=== PATIENT | female | born 1970 | race Caucasian/White ===

== ENCOUNTER → 2020-12-01 09:08 | Outpatient (CLI) | payer OTHER, MEDICAID, SELFPAY ==
--- NOTE | 2020-12-01 09:10 | DI.RAD.S_ITS ---
PROCEDURE: XR KNEE RT 3V INDICATIONS: right knee djd TECHNIQUE: 3 views of the knee were acquired. COMPARISON: Outside Facility, RG, XR KNEE 4V RIGHT, 07/07/2010, 9:46. FINDINGS: Bones: No fractures or dislocations. No suspicious bony lesions. Moderate medial and patellofemoral compartment narrowing, progressive since 2009. Tricompartmental periarticular osteophytes are present. No definitive erosions are identified. Soft tissues: No joint effusion. No suspicious soft tissue calcifications. 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 Dictated by: Cassandra Gonzalez M.D. on 12/01/2020 at 9:52 Approved by: Cassandra Gonzalez M.D. on 12/01/2020 at 9:55
== END ==
PROVIDERS: PCP Physician Assistant; Referring Provider Physical Medicine & Rehabilitation; Visit Provider Physical Medicine & Rehabilitation
DX: M17.11 Unilateral primary osteoarthritis, right knee (principal)
CPT/HCPCS: 20611; 73562; 99213; J1040